=== PATIENT | female | born 1970 | race Caucasian/White ===

== ENCOUNTER → 2021-04-09 | Outpatient (CLI) | payer OTHER ==
--- NOTE | 2021-04-09 12:56 | 2DMMODE ---
[place] [address] 2 D/M-MODE ECHOCARDIOGRAM Name: KELLEY HIGH Room: [facility]#: [id number] Admission: 04/09/21 Attend Phys: Ruddy Brown DO Discharge: Date of : 74 Date of Service: 04/09/21 1256 Report #: [id number] THIS REPORT FOR: cc: Ruddy Brown Adam J DO Liston, Michael J. MD [facility] ~ APPROVED REPORT Study performed: 04/09/2021 09:53:07 EXAM: Comprehensive 2D, Doppler, and color-flow Echocardiogram Patient Location: Out-Patient BSA: 1.81 HR: 83 bpm BP: 124/80 mmHg Other Information Study Quality: Good Indications Family Hx. heart failure 2D Dimensions IVSd: 6.63 (7-11mm) LVOT Diam: 19.46 (18-24mm) LVDd: 46.51 mm PWd: 8.69 (7-11mm) Ascending Ao: 23.43 (22-36mm) LVDs: 20.91 (25-40mm) Aortic Root: 29.30 mm Volumes Left Atrial Volume (Systole) LA ESV Index: 15.70 mL/m2 Aortic Valve AoV Peak Gerardo.: 1.27 m/s AO Peak Gr.: 6.46 mmHg LVOT Max P.61 mmHg AO Mean Gr.: 3.91 mmHg LVOT Mean P.08 mmHg LVOT Max V: 1.07 m/s AO V2 VTI: 25.27 cm LVOT Mean V: 0.66 m/s LISA (VTI): 2.64 cm2 LVOT V1 VTI: 22.41 cm Mitral Valve E/A Ratio: 1.26 [place] [address] 2 D/M-MODE ECHOCARDIOGRAM Name: KELLEY HIGH Room: [facility]#: [id number] Admission: 04/09/21 Attend Phys: Ruddy Brown DO Discharge: Date of : 74 Date of Service: 04/09/21 1256 Report #: [id number] MV Decel. Time: 163.68 ms MV E Max Gerardo.: 0.75 m/s MV PHT: 47.47 ms MVA (PHT): 4.63 cm2 TDI E/Lateral E': 5.77 E/Medial E': 5.36 Medial E' Gerardo.: 0.14 m/s Lateral E' Gerardo.: 0.13 m/s Pulmonary Valve PV Peak Gerardo.: 1.01 m/s PV Peak Gr.: 4.09 mmHg Left Ventricle The left ventricle is normal size. There is normal LV segmental wall motion. There is normal left ventricular wall thickness. Left ventricular systolic function is normal. LVEF is 55-60%. Transmitral Doppler flow pattern suggests impaired LV relaxation. Right Ventricle The right ventricle is normal size. The right ventricular systolic function is normal. Atria The left atrium size is normal. The right atrium size is normal. Aortic Valve The aortic valve is normal in structure. No aortic regurgitation is present. There is no aortic valvular stenosis. Mitral Valve The mitral valve is normal in structure. There is no mitral valve regurgitation noted. No evidence of mitral valve stenosis. Tricuspid Valve The tricuspid valve is normal in structure. There is no tricuspid valve regurgitation noted. Pulmonic Valve The pulmonary valve is normal in structure. There is no pulmonic valvular regurgitation. Great Vessels The aortic root is normal in size. IVC is normal in size and collapses >50% [place] [address] 2 D/M-MODE ECHOCARDIOGRAM Name: KELLEY HIGH Room: [facility]#: [id number] Admission: 04/09/21 Attend Phys: Ruddy Brown DO Discharge: Date of : 74 Date of Service: 04/09/21 1256 Report #: [id number] Pericardium There is no pericardial effusion. <Conclusion> The left ventricle is normal size. There is normal left ventricular wall thickness. Left ventricular systolic function is normal. LVEF is 55-60%. Transmitral Doppler flow pattern suggests impaired LV relaxation. There is normal LV segmental wall motion. IVC is normal in size and collapses >50% with inspiration. <ELECTRONICALLY SIGNED> By: Leon Shukla MD, FACC 04/09/21 1256 1256 1256 Leon Shukla MD, FACC /INF
== END ==
LOC: M.RAD 09:59
PROVIDERS: ATTEND Family Medicine
DX: Z12.31 Encounter for screening mammogram for malignant neoplasm of breast (principal); N64.89 Other specified disorders of breast; I50.9 Heart failure, unspecified; Z82.49 Family history of ischemic heart disease and other diseases of the circulatory system